=== PATIENT | female | born 1965 | race Caucasian/White ===

== ENCOUNTER → 2018-06-07 | Outpatient (CLI) | payer OTHER ==
[~2018-06-07] MED LIST: ACETAMINOPHEN325 M1 PO; ADULT LOW DOSE81 MG PO; ADVAIR HFA115 MCG/21 INH; ALBUTEROL2.5 MG/31 INH; ASPIRIN81 M2 PO; EFFIENT10 MG PO; LEVAQUIN 500 M500 M4 PO; LISINOPRIL5 MG PO; LOPRESSOR25 PO; NICOTINE TRANSD21 M1 TD; NITROSTAT0.4 MG SUBLING; PREDNISONE 5 MG5 M1 PO; VENTOLIN HFA INH8 GM INH; ZANTAC 150MG T150 M1 PO; ZESTRIL10 MG PO; ZOCOR40 MG PO
== END ==
LOC: RAD 13:17
DX: J44.9 Chronic obstructive pulmonary disease, unspecified (principal)

== ENCOUNTER → 2019-01-02 | Outpatient (CLI) | payer OTHER | LOC: NUC 12-26 07:58 | DX: I25.10 Atherosclerotic heart disease of native coronary artery without angina pectoris (principal); I25.2 Old myocardial infarction; E78.5 Hyperlipidemia, unspecified; I10 Essential (primary) hypertension; J44.9 Chronic obstructive pulmonary disease, unspecified; F17.210 Nicotine dependence, cigarettes, uncomplicated; Z95.5 Presence of coronary angioplasty implant and graft ==